=== PATIENT | male | born 2000 | race Caucasian/White ===

== ENCOUNTER 2024-12-05 17:00 | Emergency (ER) | payer BC ==
[~2024-12-05] VITALS: Ht 170.2 cm; Wt 93.0 kg
[2024-12-05] MEDS: TDAP [DIPH/PERTUSSIS/TET] 0.5 ML VIAL IM ONE (17:30)
[2024-12-05] MEDS ORDERED: TDAP [DIPH/PERTUSSIS/TET] 0.5 ML VIAL IM ONE (17:38)
[2024-12-05] MEDS ORDERED: AMOX/CLAVULANATE 875 MG TABLET ONE (17:38)
[2024-12-05 17:44] VITALS: TEMP 98.2
[2024-12-05] MEDS: AMOX/CLAVULANATE 875 MG TABLET PO ONE (17:48)
[2024-12-05] MEDS ORDERED: MUPI22OI2 TP (18:06)
[2024-12-05] MEDS ORDERED: AMOX-430 PO (18:06)
[2024-12-05 18:21] VITALS: BP 135/84; O2SAT 100
== END 2024-12-05 18:21 | disposition home or self-care (01) ==
LOC: ER 17:00
DX: S61.232A Puncture wound without foreign body of right middle finger without damage to nail, initial encounter (principal); W54.0XXA Bitten by dog, initial encounter; Y93.89 Activity, other specified; Y92.89 Other specified places as the place of occurrence of the external cause; Y99.9 Unspecified external cause status
CPT/HCPCS: 73130-TC; 90715